=== PATIENT | female | born 1985 | race Two or more races ===

== ENCOUNTER 2024-05-12 15:21 | Inpatient (IN) | payer OTHER ==
[~2024-05-12] VITALS: Ht 167.6 cm; Wt 85.0 kg
[~2024-05-12 15:21] MED LIST: GLIP-110; INSLANTI; INSLISPI; PIOG15TA38
[2024-05-12 15:50] VITALS: PULSE 67; RESP 16; O2SAT 95
[2024-05-12 16:52] LABS: Basophils # (auto) 0.1 10 ^3/uL (0-0.2); Basophils % (auto) 0.5 % (0.0-2.0); Eosinophils # (auto) 0.2 10 ^3/uL (0-0.8); Eosinophils % (auto) 2.2 % (0.0-7.0); Hematocrit 34.6 % (36.0-46.0); Hemoglobin 11.3 g/dL (12.2-16.2); Lymphocytes # (auto) 1.3 10 ^3/uL (0.4-5.4); Lymphocytes % (auto) 13.2 % (10.0-50.0); Mean Corpuscular Hgb Conc. 32.5 g/dL (32.0-36.0); Mean Corpuscular Volume 95.3 fL (80.0-100.0); Monocytes # (auto) 0.8 10 ^3/uL (0-1.3); Monocytes % (auto) 8.1 % (0.0-12.0); Neutrophils # (auto) 7.5 10 ^3/uL (1.6-8.6); Platelet Count (auto) 189 10^3/uL (140-450); Red Blood Cells 3.63 10^6/uL (4.0-5.20); Red Cell Distribution Width 15.3 % (11.8-14.3); White Blood Cell 9.9 10^3/uL (4.4-10.8)
[2024-05-12 16:57] LABS: Alanine Aminotransferase 29 U/L (7-40); Albumin 2.7 g/dL (3.2-4.8); Alkaline Phosphatase 99 U/L (46-116); Anion Gap 10 (5-15); Aspartate Aminotransferase 14 U/L (13-40); BUN/Creatinine Ratio 4.6 (10.0-20.0); Bilirubin, Total < 0.2 mg/dL (0.2-1.0); Blood Urea Nitrogen 49 mg/dL (9-23); Calcium 8.2 mg/dL (8.7-10.4); Carbon Dioxide 28 mmol/L (20-31); Chloride 90 mmol/L (98-107); Potassium 4.4 mmol/L (3.5-5.1); Sodium 128 mmol/L (136-145)
--- NOTE | 2024-05-12 17:57 | ECG ---
[facility] Test Date: 2024-05-12 Test Time: 17:56:07 Pat Name: NEEL MOE Department: ER Room: [address] [place] [address] Gender: F Flight Operation Coordinator: RUSLAN : 1985 Requested By: POLO PÉREZ Order Number: [id number] Reading MD: Desmond Simental Measurements Intervals [place] Rate: 68 P: 53 CT: 149 QRS: 66 QRSD: 99 T: 65 QT: 418 QTc: 445 Interpretive Statements Sinus rhythm Probable left atrial enlargement Left ventricular hypertrophy Baseline wander in lead(s) II,III,aVF Electronically Signed On 05-14-2024 17:37:46 PST by Desmond Simental Please click the below link to view image of tracing.
[2024-05-12] MEDS ORDERED: DEXTROSE (50%) 50ML SYRG IV PRN ×2 (18:15→21:30)
--- NOTE | 2024-05-12 18:49 | ED.PDOC ---
History of Present Illness HPI Comments 39-year-old female with past medical history of diabetes mellitus, end-stage renal disease on peritoneal dialysis every night, hypertension, osteoporosis presented with complaints of generalized weakness, nausea, vomiting. She mentioned that on Friday she started feeling weak, after that her mother picked her from work. Patient started having nausea and vomiting since Friday and has not been able to tolerate any foods since then. She also mentioned associated headache. She mentioned that she has been sleepy since Friday. She also mentioned having chest pain that has been on and off going for a very long time, and as per patient she had a cardiac catheterization recently which was normal according to her. Patient mentioned that she has been doing peritoneal dialysis every night. Past medical history diabetes mellitus, end-stage renal disease on peritoneal dialysis every night, hypertension, osteoporosis Medication history Lopressor, metoprolol, lisinopril, clonidine, iron sulfate, glipizide, insulin Social history: Denied alcohol, smoking, marijuana or any other drug intake Allergic history Metformin Review of system Already described in the HPI Physical examination Examination General Appearance: Alert, Oriented X3, Cooperative, No acute distress, sleepy, currently on 2 L of oxygen HEENT: EOMI Respiratory: Clear to auscultation, Normal air movement Cardiovascular: Regular rate, Normal S1, Normal S2 Abdominal: Soft, peritoneal catheter present Extremities: No cyanosis, No edema, Normal pulses, No tenderness/swelling Skin: No rashes, No breakdown Neuro: Normal speech and tone Chief Complaint: General Weakness Time Seen by MD: 15:40 Primary Care Provider: DENISE Allergies: Coded Allergies: Metformin (Verified Allergy, Unknown, 10/07/16) Home Meds Reported Medications Insulin Glargine (Lantus) 100 Units/Ml Vial 06/19/11 Insulin Lispro (Human) (Humalog) 100 Mg/Ml Inj 06/19/11 Glipizide (Glipizide Er) 5 Mg Tab 06/19/11 Pioglitazone Hydrochloride (Actos) 15 Mg Tab 06/19/11 Mode of Arrival: EMS X-Ray, Labs, Meds, VS Vital Signs Date Time Temp Pulse Resp B/P (MAP) Pulse Ox O2 Delivery O2 Flow Rate FiO2 05/12/24 20:03 65 16 90 Nasal Cannula* 3 32 05/12/24 19:48 98.4 65 16 168/82 (110) 90 98.4 05/12/24 18:55 178/85 05/12/24 18:00 70 17 178/90 (119) 93 05/12/24 17:56 68 05/12/24 17:45 67 05/12/24 16:27 99.1 67 16 148/74 (98) 96 99.1 05/12/24 15:50 67 16 95 Nasal Cannula* 3 32 05/12/24 15:42 98.6 66 16 175/83 (113) 94 Lab Test 05/12/24 19:57 05/12/24 19:21 05/12/24 18:48 05/12/24 18:47 Range/Units Lactic Acid Level 1.6 0.4-2.0 mmol/L Troponin I High Sensitivity 158 *H </=34 ng/L POC Glucose > 600 *H > 600 *H 70-106 mg/dl Test 05/12/24 17:30 05/12/24 16:30 Range/Units Troponin I High Sensitivity 157 *H 140 *H </=34 ng/L Beta-Hydroxybutyric Acid 0.278 < 0.4 mmol/L Beta HCG, Quantitative 1.9 1.5-4.2 mIU/mL White Blood Count 9.9 4.4-10.8 10^3/uL Red Blood Count 3.63 L 4.0-5.20 10^6/uL Hemoglobin 11.3 L 12.2-16.2 g/dL Hematocrit 34.6 L 36.0-46.0 % Mean Corpuscular Volume 95.3 80.0-100.0 fL Mean Corpuscular Hemoglobin 31.0 28.0-32.0 pg Mean Corpuscular Hemoglobin Concent 32.5 32.0-36.0 g/dL Red Cell Distribution Width 15.3 H 11.8-14.3 % Platelet Count 189 140-450 10^3/uL Mean Platelet Volume 11.8 H 6.9-10.8 fL Neutrophils (%) (Auto) 76.0 37.0-80.0 % Lymphocytes (%) (Auto) 13.2 10.0-50.0 % Monocytes (%) (Auto) 8.1 0.0-12.0 % Eosinophils (%) (Auto) 2.2 0.0-7.0 % Basophils (%) (Auto) 0.5 0.0-2.0 % Neutrophils # (Auto) 7.5 1.6-8.6 10 ^3/uL Lymphocytes # (Auto) 1.3 0.4-5.4 10 ^3/uL Monocytes # (Auto) 0.8 0-1.3 10 ^3/uL Eosinophils # (Auto) 0.2 0-0.8 10 ^3/uL Basophils # (Auto) 0.1 0-0.2 10 ^3/uL Nucleated Red Blood Cells 1.0 % Sodium Level 128 L 136-145 mmol/L Potassium Level 4.4 3.5-5.1 mmol/L Chloride Level 90 L 98-107 mmol/L Carbon Dioxide Level 28 20-31 mmol/L Anion Gap 10 5-15 Blood Urea Nitrogen 49 H 9-23 mg/dL Creatinine 10.68 *H 0.550-1.02 mg/dL Glomerular Filtration Rate Calc 4 >90 mL/min BUN/Creatinine Ratio 4.6 L 10.0-20.0 Serum Glucose 730 *H 74-106 mg/dL Calcium Level 8.2 L 8.7-10.4 mg/dL Total Bilirubin < 0.2 L 0.2-1.0 mg/dL Aspartate Amino Transferase (AST) 14 13-40 U/L Alanine Aminotransferase (ALT) 29 7-40 U/L Alkaline Phosphatase 99 46-116 U/L B-Type Natriuretic Peptide 2812.37 0-100 pg/mL Total Protein 5.0 L 5.7-8.2 g/dL Albumin 2.7 L 3.2-4.8 g/dL Current Medications Medications (Trade) Dose Ordered Sig/Ann Route Start Time Stop Time Status Last Admin Hydralazine HCl (Apresoline Injection) 5 mg ONCE ONCE IV 05/12/24 18:15 05/12/24 18:25 DC 05/12/24 18:55 Insulin Glargine (Lantus) 20 units ONCE ONCE SC 05/12/24 18:15 05/12/24 18:25 DC 05/12/24 18:53 Sodium Chloride 250 ml @ 1,000 mls/hr Q15M ONCE IV 05/12/24 18:30 05/12/24 18:44 DC 05/12/24 18:55 Time of 1ST Reevaluation: 18:48 Reevaluation 1ST: Unchanged Patient Education/Counseling: Diagnosis, Treatment Family Education/Counseling: Diagnosis, Treatment Comments Patient presented with the HPI :generalized weakness, nausea, vomiting, chest pain. workup was initiated. EKG revealed normal sinus rhythm, no ST changes. Patient had elevated troponins 140, 157. Patient was given 250 mL IV bolus 2 times. test was negative. was given IV hydralazine no evidence of DKA. Patient was started on insulin Lantus and moderate sliding scale insulin Statement Request Clerk was consulted for peritoneal dialysis Patient has been observed in the ED adequate length of time to insure impro vement/stability. patient was admitted to the medicine team for further evaluation and treatment of their presentation. Departure 1 Departure Time of Disposition: 18:09 Impression: Primary Impression: Uncontrolled diabetes mellitus Additional Impressions: Elevated troponin Chest pain Acute hypoxic respiratory failure Disposition: ADMITTED INPATIENT Admit to: Tele Condition: Guarded Comments Talk to Dr. Cyr from [facility], authorized to admit the patient. Authorization number : [id number] POLO PÉREZ RESIDENT May 12, 2024 18:49
[2024-05-12] MEDS: INSULIN LANTUS (GLARGINE) 1 /0.01ml (100units/ml) SC ONE (18:53)
[2024-05-12] MEDS: SODIUM CHLORIDE 0.9% 250 ML IV ONE ×2 (18:55→19:00)
[2024-05-12] MEDS: hydrALAZINE HCL 20 MG/ML VL IV ONE ×2 (18:55→21:43)
--- NOTE | 2024-05-12 19:11 | DVH ---
EXAM: XY CHEST PORTABLE CLINICAL HISTORY: SOB TECHNIQUE: Single AP view of the chest WID: COMPARISON: None FINDINGS: Lines and tubes: None Chest: The heart size and pulmonary vasculature is within normal limits. No pleural effusion, pneumothorax, or consolidation. The osseous structures are grossly intact. IMPRESSION: No acute cardiopulmonary abnormality.
[2024-05-12] MEDS: ACCU-CHEK COMFORT CURVE STRIP VI SCH (20:00)
[2024-05-12] MEDS: InsuLIN REG 1unit/0.01ml Soln (100units/ml) SC SCH (20:00)
[2024-05-12 20:03] VITALS: PULSE 65; RESP 16; O2SAT 90
[2024-05-12] MEDS ORDERED: SODIUM BICARB 8.4% 50Meq/50ml SYR Vial IV ONE (20:45)
[2024-05-12] MEDS ORDERED: hydrALAZINE HCL 20 MG/ML VL IV PRN (21:30)
[2024-05-12] MEDS ORDERED: ACETAMINOPHEN 325 MG TAB PO PRN (21:30)
[2024-05-12] MEDS ORDERED: TEMAZEPAM 15 MG CAP PO PRN (21:30)
[2024-05-12] MEDS ORDERED: NITROGLYCERIN 0.4 MG SL TAB SL PRN (21:30)
[2024-05-12] MEDS: ATORVASTATIN 20 MG TAB PO SCH (22:00)
[2024-05-13] MEDS: InsuLIN REG 1unit/0.01ml Soln (100units/ml) SC SCH ×3 (00:15→22:27)
[2024-05-13] MEDS: ACCU-CHEK COMFORT CURVE STRIP VI SCH ×4 (00:15→17:27)
[2024-05-13 04:44] LABS: Basophils # (auto) 0 10 ^3/uL (0-0.2); Basophils % (auto) 0.5 % (0.0-2.0); Eosinophils # (auto) 0.5 10 ^3/uL (0-0.8); Eosinophils % (auto) 4.4 % (0.0-7.0); Hemoglobin 11.4 g/dL (12.2-16.2); Lymphocytes # (auto) 1.6 10 ^3/uL (0.4-5.4); Lymphocytes % (auto) 15.4 % (10.0-50.0); Mean Corpuscular Hemoglobin 30.8 pg (28.0-32.0); Mean Corpuscular Hgb Conc. 32.7 g/dL (32.0-36.0); Mean Corpuscular Volume 94.1 fL (80.0-100.0); Monocytes # (auto) 0.8 10 ^3/uL (0-1.3); Monocytes % (auto) 7.1 % (0.0-12.0); Neutrophils # (auto) 7.8 10 ^3/uL (1.6-8.6); Neutrophils % (auto) 72.6 % (37.0-80.0); Nucleated Red Blood Cells % 0.8 %; Platelet Count (auto) 181 10^3/uL (140-450); Red Blood Cells 3.72 10^6/uL (4.0-5.20); Red Cell Distribution Width 14.8 % (11.8-14.3); White Blood Cell 10.7 10^3/uL (4.4-10.8)
[2024-05-13 05:04] LABS: Alanine Aminotransferase 32 U/L (7-40); Alkaline Phosphatase 97 U/L (46-116); Anion Gap 12 (5-15); Aspartate Aminotransferase 16 U/L (13-40); BUN/Creatinine Ratio 3.5 (10.0-20.0); Bilirubin, Total < 0.2 mg/dL (0.2-1.0); Calcium 8.5 mg/dL (8.7-10.4); Carbon Dioxide 27 mmol/L (20-31); Chloride 93 mmol/L (98-107); Potassium 3.1 mmol/L (3.5-5.1); Sodium 132 mmol/L (136-145); Total Protein 5.6 g/dL (5.7-8.2)
[2024-05-13 05:19] LABS: Blood Urea Nitrogen 36 mg/dL (9-23)
[2024-05-13 05:20] LABS: Glucose 450 mg/dL (74-106)
--- NOTE | 2024-05-13 05:37 | DVHHP2 ---
History of Present Illness Reason for Visit: Generalized weakness History of Present Illness 39-year-old female presents for evaluation of generalized weakness. The patient endorses a three day history of worsening generalized weakness with fatigue. Patient reports practically becoming bed ridden for the past one day due to the increased fatigue. Her blood sugars have also remain elevated greater than 400. She is dialysis dependent and has peritoneal dialysis daily at home. Also reports substernal chest pressure. Denies shortness or breath. No other acute complaints reported. Past Medical History Diabetes mellitus, hypertension, end-stage renal disease Past Surgical History Peritoneal access Family History Noncontributory Smoke: No ALCOHOL: none Drugs: None Lives: with Family Review of Systems Review of Systems Review of systems are currently negative otherwise addressed in HPI. Allergies: Coded Allergies: Metformin (Verified Allergy, Unknown, 10/07/16) Medications Current Medications Medications Dose Ordered Sig/Ann Route Start Time Stop Time Status Last Admin Dose Admin Diagnostic Test (Pha) 1 strip IQ4HR 05/12/24 20:00 05/12/24 20:00 1 STRIP Insulin Human Regular IQ4HR SC 05/12/24 20:00 05/12/24 20:00 15 UNITS Dextrose 50 ml UD PRN IV 05/12/24 18:15 Pantoprazole Sodium 40 mg DAILY@0600 PO 05/13/24 06:00 Atorvastatin Calcium 20 mg HS PO 05/12/24 22:00 05/12/24 22:00 20 MG Aspirin 162 mg DAILY PO 05/13/24 10:00 Amlodipine Besylate 10 mg DAILY PO 05/13/24 10:00 Calcium Acetate 667 mg TIDWMEALS PO 05/13/24 08:00 Hydralazine HCl 10 mg Q6HP PRN IV 05/12/24 21:30 Diagnostic Test (Pha) 1 strip IQ4HR 05/13/24 00:00 05/13/24 00:15 1 STRIP Insulin Human Regular IQ4HR SC 05/13/24 00:00 05/13/24 00:15 20 UNITS Dextrose 50 ml UD PRN IV 05/12/24 21:30 Temazepam 15 mg QHSP PRN PO 05/12/24 21:30 Ondansetron HCl 4 mg Q4HP PRN IV 05/12/24 21:30 Acetaminophen 650 mg Q6HP PRN PO 05/12/24 21:30 Nitroglycerin 0.4 mg Q5MINP PRN SL 05/12/24 21:30 Morphine Sulfate 2 mg Q30M PRN IV 05/12/24 21:30 Exam Vital Signs Vital Signs Date Time Temp Pulse Resp B/P (MAP) Pulse Ox O2 Delivery O2 Flow Rate FiO2 05/13/24 04:00 66 14 155/78 (103) 94 05/13/24 00:00 98.4 98.4 05/12/24 20:03 Nasal Cannula* 3 32 Exam Gen: 39-year-old female in mild distress Skin: Warm, dry, normal color and texture, no rash. HEENT: Normocephalic atraumatic, mucous membranes moist and pink. Neck: Cervical and supraclavicular nodes normal without enlargement, trachea is midline, thyroid gland is normal without masses. Pulmonary: Clear to auscultation and percussion bilaterally. Cardiac: Regular rate and rhythm. No murmur Abdomen: Soft, nontender, nondistended, bowel sounds present all 4 quadrants, no guarding, no rigidity, no organomegaly. Extremities: No cyanosis, clubbing, no edema Neuro: Cranial nerves II through XII grossly intact, normal affect and speech, no focal motor deficits. Labs/Xrays ORDERING PHYSICIAN: POLO PÉREZ RESIDENT PROCEDURE(s): CXRP - CHEST PORTABLE REASON: SOB ORDER NUMBER(s): [id number], ACCESSION NUMBER(s): [id number] EXAM: XY CHEST PORTABLE CLINICAL HISTORY: SOB TECHNIQUE: Single AP view of the chest WID: COMPARISON: None FINDINGS: Lines and tubes: None Chest: The heart size and pulmonary vasculature is within normal limits. No pleural effusion, pneumothorax, or consolidation. The osseous structures are grossly intact. IMPRESSION: No acute cardiopulmonary abnormality. ATED BY: YARELI GOETZ MD DICTATED DATE/TIME: 05/12/241907 Labs Test 05/13/24 04:20 05/13/24 01:39 05/12/24 19:57 05/12/24 19:21 Range/Units White Blood Count 10.7 4.4-10.8 10^3/uL Red Blood Count 3.72 L 4.0-5.20 10^6/uL Hemoglobin 11.4 L 12.2-16.2 g/dL Hematocrit 35.0 L 36.0-46.0 % Mean Corpuscular Volume 94.1 80.0-100.0 fL Mean Corpuscular Hemoglobin 30.8 28.0-32.0 pg Mean Corpuscular Hemoglobin Concent 32.7 32.0-36.0 g/dL Red Cell Distribution Width 14.8 H 11.8-14.3 % Platelet Count 181 140-450 10^3/uL Mean Platelet Volume 10.8 6.9-10.8 fL Neutrophils (%) (Auto) 72.6 37.0-80.0 % Lymphocytes (%) (Auto) 15.4 10.0-50.0 % Monocytes (%) (Auto) 7.1 0.0-12.0 % Eosinophils (%) (Auto) 4.4 0.0-7.0 % Basophils (%) (Auto) 0.5 0.0-2.0 % Neutrophils # (Auto) 7.8 1.6-8.6 10 ^3/uL Lymphocytes # (Auto) 1.6 0.4-5.4 10 ^3/uL Monocytes # (Auto) 0.8 0-1.3 10 ^3/uL Eosinophils # (Auto) 0.5 0-0.8 10 ^3/uL Basophils # (Auto) 0 0-0.2 10 ^3/uL Nucleated Red Blood Cells 0.8 % Sodium Level 132 L 136-145 mmol/L Potassium Level 3.1 L 3.5-5.1 mmol/L Chloride Level 93 L 98-107 mmol/L Carbon Dioxide Level 27 20-31 mmol/L Anion Gap 12 5-15 Blood Urea Nitrogen 36 #H 9-23 mg/dL Creatinine 10.24 *H 0.550-1.02 mg/dL Glomerular Filtration Rate Calc 5 >90 mL/min BUN/Creatinine Ratio 3.5 L 10.0-20.0 Serum Glucose 450 *H 74-106 mg/dL Calcium Level 8.5 L 8.7-10.4 mg/dL Total Bilirubin < 0.2 L 0.2-1.0 mg/dL Aspartate Amino Transferase (AST) 16 13-40 U/L Alanine Aminotransferase (ALT) 32 7-40 U/L Alkaline Phosphatase 97 46-116 U/L Total Protein 5.6 L 5.7-8.2 g/dL Albumin 3.0 L 3.2-4.8 g/dL POC Glucose 533 *H 70-106 mg/dl Lactic Acid Level 1.6 0.4-2.0 mmol/L Troponin I High Sensitivity 158 *H </=34 ng/L Test 05/12/24 17:30 05/12/24 16:30 Range/Units Beta-Hydroxybutyric Acid 0.278 < 0.4 mmol/L Beta HCG, Quantitative 1.9 1.5-4.2 mIU/mL B-Type Natriuretic Peptide 2812.37 0-100 pg/mL Assessment/Plan Assessment/Plan Assessment Uncontrolled diabetes mellitus Elevated troponin End-stage renal disease, dialysis dependent Accelerated hypertension Anemia of chronic disease Plan Admit the patient to [facility] to the hospitalist Nephrology consult Cardiology consult Echocardiogram pending Continue insulin drip Resume home medications Continue treatment per orders. Plan discussed with: Patient My Orders Orders - DIANE WILKINS Procedure Category Date Status Time * Cardiology Consult CONS 05/12/24 Transmitted 21:21 Pantoprazole Tablet PHA 05/13/24 In Process (Protonix Tablet) 06:00 Atorvastatin (Lipitor) PHA 05/12/24 In Process 22:00 Aspirin Tablet PHA 05/13/24 In Process 10:00 Amlodipine Tablet PHA 05/13/24 In Process (Norvasc Tablet) 10:00 Calcium Acetate PHA 05/13/24 In Process Capsule (Phoslo 08:00 Hydralazine Injection PHA 05/12/24 In Process (Apresoline Inject 21:30 Glucose Blood PHA 05/13/24 In Process (Accu-Chek Comfort 00:00 Insulin R (Human) PHA 05/13/24 In Process (Insulin R) 00:00 Dextrose 50% Syringe PHA 05/12/24 In Process 21:30 Admit ADMIT 05/12/24 Transmitted 21:21 Renal DIET 05/13/24 Transmitted Standard(2gna,3gk,Lopho) Breakfast Temazepam (Restoril) PHA 05/12/24 In Process 21:30 Ondansetron Hcl PHA 05/12/24 In Process (Zofran) 21:30 Echo 2d Mode Cardiac US 05/12/24 Logged DOP 21:21 Condition: Fair DEANNE 11/20/24 In Process 21:21 Acetaminophen Tablet PHA 05/12/24 In Process (Tylenol Tablet) 21:30 Bedrest With Bathroom [facility] 05/12/24 In Process Privileg 21:21 Nitroglycerin [facility] 05/12/24 In Process Sublingual (Ntrostat 21:30 Morphine Sulfate [facility] 05/12/24 In Process Injection 21:30 Stat Ekg For Chest [facility] 05/12/24 In Process Pain 21:21 Notify Of Changes [facility] 05/12/24 In Process From Base 21:21 Maintenance [employer] For [facility] 05/12/24 In Process 24 Hours 21:21 Emergency Dysrhythmia [facility] 05/12/24 In Process Protocol 21:21 Rhythm Strips Once [facility] 05/12/24 In Process Every Shift 21:21 Oxygen By Nasal RT 05/12/24 Transmitted Cannula 21:21 Date of Service: May 12, 2024 Billing Provider: DIANE WILKINS Common Visit Codes: [id number] CARE 30-74 MIN DIANE WILKINS May 13, 2024 05:37
[2024-05-13] MEDS ORDERED: DEXTROSE (50%) 50ML SYRG IV PRN ×2 (05:45→12:15)
[2024-05-13] MEDS: INSULIN LANTUS (GLARGINE) 1 /0.01ml (100units/ml) SC ONE (05:45)
[2024-05-13] MEDS ORDERED: INSULIN DRIP 100 UNIT/100ML 100 ML IV SCH ×2 (05:45→06:30)
[2024-05-13] MEDS: PANTOPRAZOLE 40 MG TAB PO SCH (06:14)
[2024-05-13] MEDS: MORPHINE SULFATE INJ 2 MG/ml SYRG IV PRN (06:29)
[2024-05-13] MEDS: INSULIN DRIP 100 UNIT/100ML 100 ML IV SCH (07:07)
[2024-05-13 07:30] VITALS: PULSE 65; RESP 16
[2024-05-13] MEDS: CALCIUM ACETATE 667 MG CAP PO SCH (08:00)
[2024-05-13] MEDS: POTASSIUM CHL 20 Meq TABLET PO ONE ×2 (08:47→08:51)
[2024-05-13 08:56] LABS: Magnesium 2.6 mg/dL (1.6-2.6)
--- NOTE | 2024-05-13 09:36 | DVHINCON2 ---
Date Seen: May 13, 2024 Referring Physician RANDY Webb Reason for Consultation Elevated troponin History of Present Illness This is a 39-year-old female patient who presents to the emergency room with chief complaint of generalized weakness, chest pain, nausea, vomiting, loss of appetite, and shortness of breath. The patient reports that she slipped in the shower and fell landing on her chest approximately 4 days ago. Since then she has been experiencing reproducible chest pain. She describes the pain as provoked by touch, located in the intermammary region, and nonradiating. She reports that she has also been experiencing generalized weakness, nausea, vomiting, and decreased appetite for approximately five days now. Initial twelve lead electrocardiogram reveals normal sinus rhythm without any significant ST segment changes. Initial troponin level of 140ng/L with flat trend thereafter. Significant past medical history includes hypertension, hyperlipidemia, end-stage renal disease on peritoneal dialysis, type II diabetes mellitus, osteoporosis, and obesity. Of note, the patient came in a serum glucose level of 730mg/dL. She also came in with a blood pressure reaching as high as 178/90. She reports compliance with all of her medications, but reports she has been experiencing vomiting for the last few days. The patient also reports seeing a clerk guide earlier this year in which she reports she underwent a stress test that was negative. Past Medical History Past medical history reviewed. No other significant than mentioned above. Past Surgical History Denies all previous surgeries Family History Family history reviewed. Social History Denies the use of tobacco, alcohol or illicit drugs. Allergies: Coded Allergies: Metformin (Verified Allergy, Unknown, 10/07/16) Home Meds Reported Medications Insulin Glargine (Lantus) 100 Units/Ml Vial 06/19/11 Insulin Lispro (Human) (Humalog) 100 Mg/Ml Inj 06/19/11 Glipizide (Glipizide Er) 5 Mg Tab 06/19/11 Pioglitazone Hydrochloride (Actos) 15 Mg Tab 06/19/11 Home Meds Home medications reviewed. Current Medications Current Medications Medications (Trade) Dose Ordered Sig/Ann Route PRN Reason Start Time Stop Time Status Last Admin Diagnostic Test (Pha) (Accu-Chek Comfort Curve T) 1 strip IQ4HR 05/12/24 20:00 05/13/24 05:56 DC 05/12/24 20:00 Insulin Human Regular (InsuLIN R) IQ4HR SC 05/12/24 20:00 05/13/24 05:56 DC 05/12/24 20:00 Dextrose 50 ml UD PRN IV Blood Sugar LESS THAN 60 05/12/24 18:15 05/13/24 05:56 DC Pantoprazole Sodium (Protonix Tablet) 40 mg DAILY@0600 PO 05/13/24 06:00 05/13/24 06:14 Atorvastatin Calcium (Lipitor) 20 mg HS PO 05/12/24 22:00 05/12/24 22:00 Aspirin 162 mg DAILY PO 05/13/24 10:00 Amlodipine Besylate (Norvasc Tablet) 10 mg DAILY PO 05/13/24 10:00 Calcium Acetate (Phoslo Capsule) 667 mg TIDWMEALS PO 05/13/24 08:00 Hydralazine HCl (Apresoline Injection) 10 mg Q6HP PRN IV SBP>150 05/12/24 21:30 Diagnostic Test (Pha) (Accu-Chek Comfort Curve T) 1 strip IQ4HR 05/13/24 00:00 05/13/24 05:56 DC 05/13/24 00:15 Insulin Human Regular (InsuLIN R) IQ4HR SC 05/13/24 00:00 05/13/24 05:34 DC 05/13/24 00:15 Dextrose 50 ml UD PRN IV Blood Sugar LESS THAN 60 05/12/24 21:30 05/13/24 05:56 DC Temazepam (Restoril) 15 mg QHSP PRN PO FOR INSOMNIA 05/12/24 21:30 Ondansetron HCl (Zofran) 4 mg Q4HP PRN IV NAUSEA / VOMITING 05/12/24 21:30 Acetaminophen (Tylenol Tablet) 650 mg Q6HP PRN PO PAIN SCALE 1-3 OR TEMP>100.4 05/12/24 21:30 Nitroglycerin (Ntrostat Sublingual) 0.4 mg Q5MINP PRN SL FOR CHEST PAIN 05/12/24 21:30 Morphine Sulfate 2 mg Q30M PRN IV FOR CHEST PAIN 05/12/24 21:30 05/13/24 06:29 Insulin Human (Reg)/Sodium Chloride 100 ml @ 0.5 mls/hr Q24H IV 05/13/24 05:45 11/21/24 06:25 DC Diagnostic Test (Pha) (Accu-Chek Comfort Curve T) 1 strip Q90MIN 05/13/24 06:00 05/13/24 07:57 Dextrose 50 ml PRN PRN IV BG LESS Than 70 AND CALL 05/13/24 05:45 Insulin Glargine (Lantus) 15 units DAILY SC 05/14/24 10:00 Insulin Human (Reg)/Sodium Chloride 100 ml @ 0.5 mls/hr Q24H IV 05/13/24 06:30 05/13/24 06:36 DC Insulin Human (Reg)/Sodium Chloride 100 ml @ 0.5 mls/hr Q24H IV 05/13/24 06:45 05/13/24 08:48 Review of Systems Constitutional: Generalized weakness Ears, Nose, & Throat: No symptom reported Eyes: No symptom reported Neurological: No symptoms reported Pulmonary/Respiratory: No symptoms reported Cardiovascular: Chest pain Gastrointestinal: Nausea, vomiting, loss of appetite Genitourinary: No symptom reported Musculoskeletal: No symptom reported Skin: No symptom reported Psychiatric: No symptom reported Endocrine: No symptom reported Hematologic/Lymphatic: No symptom reported Vital Signs Vital Signs Date Time Temp Pulse Resp B/P (MAP) Pulse Ox O2 Delivery O2 Flow Rate FiO2 05/13/24 07:09 65 16 136/69 05/13/24 06:21 94 05/13/24 00:00 98.4 98.4 05/12/24 20:03 Nasal Cannula* 3 32 Physical Exam General Appearance: Cooperative. Obese Pulmonary/Respiratory: Clear, bilateral breaths sounds. Cardiovascular/Chest: Regular rate and rhythm. Peripheral Pulses: 2+ Radial (R). 2+ Radial (L). 2+ Pedal (R). 2+ Pedal (L) Abdominal Exam: Normal bowel sounds. Ankle Exam: Negative ankle edema Lower extremities: Negative lower extremity edema Neuro/Mental Status: A/OX4, coherent. Thoughts/Psych: Normal thought pattern. Appropriate mood and affect. Good judgment and insight. Appearance: No acute distress. Skin Exam: Normal inspection. Normal color. Warm and dry. Labs/Diagnostic Data Labs Test 05/13/24 07:52 05/13/24 04:20 05/12/24 19:57 05/12/24 19:21 Range/Units POC Glucose 292 H 70-106 mg/dl White Blood Count 10.7 4.4-10.8 10^3/uL Red Blood Count 3.72 L 4.0-5.20 10^6/uL Hemoglobin 11.4 L 12.2-16.2 g/dL Hematocrit 35.0 L 36.0-46.0 % Mean Corpuscular Volume 94.1 80.0-100.0 fL Mean Corpuscular Hemoglobin 30.8 28.0-32.0 pg Mean Corpuscular Hemoglobin Concent 32.7 32.0-36.0 g/dL Red Cell Distribution Width 14.8 H 11.8-14.3 % Platelet Count 181 140-450 10^3/uL Mean Platelet Volume 10.8 6.9-10.8 fL Neutrophils (%) (Auto) 72.6 37.0-80.0 % Lymphocytes (%) (Auto) 15.4 10.0-50.0 % Monocytes (%) (Auto) 7.1 0.0-12.0 % Eosinophils (%) (Auto) 4.4 0.0-7.0 % Basophils (%) (Auto) 0.5 0.0-2.0 % Neutrophils # (Auto) 7.8 1.6-8.6 10 ^3/uL Lymphocytes # (Auto) 1.6 0.4-5.4 10 ^3/uL Monocytes # (Auto) 0.8 0-1.3 10 ^3/uL Eosinophils # (Auto) 0.5 0-0.8 10 ^3/uL Basophils # (Auto) 0 0-0.2 10 ^3/uL Nucleated Red Blood Cells 0.8 % Sodium Level 132 L 136-145 mmol/L Potassium Level 3.1 L 3.5-5.1 mmol/L Chloride Level 93 L 98-107 mmol/L Carbon Dioxide Level 27 20-31 mmol/L Anion Gap 12 5-15 Blood Urea Nitrogen 36 #H 9-23 mg/dL Creatinine 10.24 *H 0.550-1.02 mg/dL Glomerular Filtration Rate Calc 5 >90 mL/min BUN/Creatinine Ratio 3.5 L 10.0-20.0 Serum Glucose 450 *H 74-106 mg/dL Calcium Level 8.5 L 8.7-10.4 mg/dL Magnesium Level 2.6 1.6-2.6 mg/dL Total Bilirubin < 0.2 L 0.2-1.0 mg/dL Aspartate Amino Transferase (AST) 16 13-40 U/L Alanine Aminotransferase (ALT) 32 7-40 U/L Alkaline Phosphatase 97 46-116 U/L Total Protein 5.6 L 5.7-8.2 g/dL Albumin 3.0 L 3.2-4.8 g/dL Triglycerides Level 151 H < 150 mg/dL Cholesterol Level 124 < 200 mg/dL LDL Cholesterol 62 < 100 mg/dL HDL Cholesterol 30 L 40-59 mg/dL Thyroid Stimulating Hormone (TSH) 1.82 0.55-4.78 uIU/mL Lactic Acid Level 1.6 0.4-2.0 mmol/L Troponin I High Sensitivity 158 *H </=34 ng/L Test 05/12/24 17:30 05/12/24 16:30 Range/Units Beta-Hydroxybutyric Acid 0.278 < 0.4 mmol/L Beta HCG, Quantitative 1.9 1.5-4.2 mIU/mL B-Type Natriuretic Peptide 2812.37 0-100 pg/mL Assessment NSTEMI, rule out coronary artery disease Hypertensive urgency, resolved Uncontrolled diabetes mellitus, (Hgb A1c 12.6%) End-stage renal disease on peritoneal dialysis Obesity Plan/Recommendation We will continue with the following plan/recommendations (Dr. Braun): Seen and examined at bedside with . Transthoracic echocardiogram reveals EF 50%. Given the patient's elevated troponin level, multiple comorbidities, and elevated HEART score of 4 points, we will recommend for the patient to undergo a left heart catheterization. The procedure was discussed with the patient full detail including risks and benefits. Risks include but not limited to bleeding, contrast induced nephropathy, stroke, and even . The patient understands and is agreeable to undergo the procedure. We will schedule the patient at first availability on 05/14/24. In the meantime, continue on monitoring tech and notify of any ECG changes. Aggressive BP control, and lipid-lowering agent. Thank you for allowing us to care for this patient. Please call with any questions or concerns. Critical care time spent: 40 minutes This medical document was created using an electronic medical record system with voice recognition software and computerized dictation system. Although this document has been carefully reviewed, there might still be some phonetic and typographical errors. Occasional wrong-word or ``sound-alike substitutions may have occurred due to the inherent limitations of voice recognition software. These areas are purely typographical due to imperfections of the software progr ams and do not reflect any compromise in the patient's medical care. Please read the chart carefully and recognize, using context, where these substitutions have occurred. Plan discussed with: Patient Date of Service: May 13, 2024 Billing Provider: PRIYANKA BRAUN MD Cardiology Common Codes: 69384-[id number] INP/OBS CARE (High) Cardiology Consultation Codes: 21141-[id number] CONSULT <45MIN ARNOLD PAPPAS PETROPHYSICIST May 13, 2024 09:36
[2024-05-13] MEDS: ASPirin 81 mg TAB PO SCH (10:28)
[2024-05-13] MEDS: amLODIPine BESYLATE 5 MG TAB PO SCH (10:29)
--- NOTE | 2024-05-13 14:44 | DVHSR ---
APPROVED REPORT EXAM: Two-dimensional and M-mode echocardiogram with Doppler and color Doppler. Blood Pressure: 136/69 mmHg INDICATION EF RISK FACTORS Height: 5' 6", Weight: 187 DIMENSIONS LVDd5.0 (3.8-5.7cm)LA (2D)4.3 (1.9-4.0cm)Aortic Root2.7 (2.0-3.7cm) LVDs4.0 (2.5-4.0cm)LA (MM) (1.9-4.0cm)Aortic Cusp Exc1.6 (1.5-2.0cm) EF (%) 50.0 (55-70%)Rt. Atrium3.9 (1.9-4.0cm)Asc. Aorta cm IVSd1.4 (0.7-1.1cm)RV (D) (1.8-2.4cm) PWd1.5 (0.7-1.1cm) Mitral Valve MitralMitral Stenosis E wave1.30m/sMV Mean GR.mmHg A wave0.70m/sMV Peak GR.mmHg E/A ratio1.92D MVAcm2 Aortic Valve Aortic ValveAortic Stenosis V10.90m/Boogie Mean GR.6mmHg V21.60m/Boogie Peak GR.11mmHg LVOT Diameter2.0 (1.8-2.4cm)Doppler AVA1.77cm2 Pulmonic Valve V20.60m/s Tricuspid Valve TR Velocity2.80m/s [id number] Conclusion Normal left ventricular size and dimension. Normal left ventricular systolic function estimated ejec tion fraction 50%. Normal diastolic function. Normal right ventricular size and dimension. Normal right ventricular systolic function. Normal biatrial size and dimension. Normal aortic valve structure and function. Normal mitral valve structure and function. Normal tricuspid valve structure and function. Pulmonary valve is grossly normal. There is a small pericardial effusion.
--- NOTE | 2024-05-13 17:01 | DVHPN2 ---
Subjective Patient continues to report having chest pain and shortness of breaths. Reviewed: Care Plan, H&P, Labs, Medications Changes from previous H/P or p: No Changes General: Per HPI Objective Vitals Vital Signs Date Time Temp Pulse Resp B/P (MAP) Pulse Ox O2 Delivery O2 Flow Rate FiO2 05/13/24 11:00 98.3 66 16 149/82 (104) 94 98.3 05/13/24 07:30 Nasal Cannula* 3 32 General Appearance: Alert, Oriented X3, Cooperative, mild distress HEENT: Atraumatic, PERRLA Lungs: Clear to auscultation, Normal air movement, Other (Cannula at 2 L per minute) Cardiovascular: Normal S1, Normal S2 Musculoskeletal: Normal sensory function, Normal motor function Neuro: Normal gait, Normal speech Psych/Mental Status: Mental status NL, Mood NL Medications Current Medications Medications Dose Ordered Sig/Ann Route Start Time Stop Time Status Last Admin Dose Admin Pantoprazole Sodium 40 mg DAILY@0600 PO 05/13/24 06:00 05/13/24 06:14 40 MG Amlodipine Besylate 10 mg DAILY PO 05/13/24 10:00 05/13/24 10:29 10 MG Calcium Acetate 667 mg TIDWMEALS PO 05/13/24 08:00 05/13/24 12:59 667 MG Hydralazine HCl 10 mg Q6HP PRN IV 05/12/24 21:30 Temazepam 15 mg QHSP PRN PO 05/12/24 21:30 Ondansetron HCl 4 mg Q4HP PRN IV 05/12/24 21:30 Acetaminophen 650 mg Q6HP PRN PO 05/12/24 21:30 Nitroglycerin 0.4 mg Q5MINP PRN SL 05/12/24 21:30 Morphine Sulfate 2 mg Q30M PRN IV 05/12/24 21:30 05/13/24 06:29 2 MG Insulin Glargine 15 units DAILY SC 05/14/24 10:00 Diagnostic Test (Pha) 1 strip ACHS 05/13/24 17:00 Insulin Human Regular HS SC 05/13/24 22:00 Insulin Human Regular AC SC 05/13/24 17:00 Dextrose 50 ml UD PRN IV 05/13/24 12:15 Atorvastatin Calcium 40 mg HS PO 05/13/24 22:00 Laboratory Results Laboratory Tests 05/13/24 04:20 Chemistry Test 05/13/24 04:20 Albumin 3.0 g/dL (3.2-4.8) L Calcium Level 8.5 mg/dL (8.7-10.4) L Magnesium Level 2.6 mg/dL (1.6-2.6) Phosphorus Level 4.1 mg/dL (2.4-5.1) Total Protein 5.6 g/dL (5.7-8.2) L Lipid panel Test 05/13/24 04:20 Cholesterol Level 124 mg/dL (< 200) HDL Cholesterol 30 mg/dL (40-59) L Triglycerides Level 151 mg/dL (< 150) H LFT Test 05/13/24 04:20 Alanine Aminotransferase (ALT) 32 U/L (7-40) Alkaline Phosphatase 97 U/L (46-116) Aspartate Amino Transferase (AST) 16 U/L (13-40) Total Bilirubin < 0.2 mg/dL (0.2-1.0) L HgA1c, TSH Test 05/13/24 04:20 Hemoglobin A1c 12.6 % A1C (<5.7) H Thyroid Stimulating Hormone (TSH) 1.82 uIU/mL (0.55-4.78) Labs and/or images reviewed: Labs reviewed by me, Image(s) reviewed by me Assessment/Plan Assessment/Plan Impression: -NSTEMI, probably type 2 -severe hyperglycemia -chest trauma -end-stage renal disease with peritoneal dialysis -diabetes mellitus, type on -obesity -chronic pain syndrome Plan: -cardiology consultation: Plans for left heart catheterization tomorrow -CT scan of the chest given persistent chest pain after mechanical fall -blood sugars now controlled, stop insulin drip, use insulin sliding scale -continue peritoneal dialysis per Nephrology -restart home pain management regimen -repeat labs in a.m. -patient is unstable to transfer to [facility] and given chest pain, NSTEMI questionably type 1, as well as insulin drip. Critical care time spent with patient discussing and formulating plan of care: 40 minutes. This does not include time spent performing procedures. This medical document was created using an electronic medical record system with [employer] dictation system. Although this document has been carefully reviewed, there may still be some phonetic and typographical errors. These areas are purely typographical due to imperfections of the software programs, and do not reflect any compromise in the patient's medical care. Plan discussed with: Patient, Other (RN) My Orders Orders - GARRETT GELLER NP Procedure Category Date Status Time Glucose Blood PHA 05/13/24 In Process (Accu-Chek Comfort 17:00 Insulin R (Human) PHA 05/13/24 In Process (Insulin R) 22:00 Insulin R (Human) PHA 05/13/24 In Process (Insulin R) 17:00 Dextrose 50% Syringe PHA 05/13/24 In Process 12:15 Transfer Orders XFER 05/13/24 Transmitted 12:05 Date of Service: May 13, 2024 Billing Provider: GARRETT GELLER NP Common Visit Codes: 82847-[id number] CARE 30-74 MIN GARRETT GELLER NP May 13, 2024 17:01
--- NOTE | 2024-05-13 17:30 | DVHCONRES ---
Date Seen: May 13, 2024 Resident Creating Document: TINY PATIÑO RESIDENT Referring Physician Jon PADILLA Reason for Consultation ESRD History of Present Illness Patient is 39 year old female with past medical history hypertension, hyperlipidemia, end-stage renal disease on peritoneal dialysis, type II diabetes mellitus, osteoporosis, and obesity who came to the hospital with a chief complaint of generalized weakness, loss of appetite and mild shortness of breath. As per patient her diabetes not under control, the reason for ended up ESRD requiring dialysis was uncontrolled hypertension and diabetes. Patient usually follow at [place] with corporate meeting planner over there. At the time of evaluation patient continued complaining of generalized weakness, shortness of breath, loss of appetite. No any other complaints at that point. Patient was found to have a high level of glucose around 700 mg/dL, by hospitalist team patient was given insulin. Nephrology consultation was done for management of end-stage renal disease. No other complaints at this point. Past Medical History hypertension, hyperlipidemia, end-stage renal disease on peritoneal dialysis, type II diabetes mellitus, osteoporosis, and obesity Past Surgical History Denies surgery. Social History Lives with family Denies use of alcohol, smoking or any other illicit drug use. Allergies: Coded Allergies: Metformin (Verified Allergy, Unknown, 10/07/16) Home Meds Reported Medications Insulin Glargine (Lantus) 100 Units/Ml Vial 06/19/11 Insulin Lispro (Human) (Humalog) 100 Mg/Ml Inj 06/19/11 Glipizide (Glipizide Er) 5 Mg Tab 06/19/11 Pioglitazone Hydrochloride (Actos) 15 Mg Tab 06/19/11 Current Medications Current Medications Medications (Trade) Dose Ordered Sig/Ann Route PRN Reason Start Time Stop Time Status Last Admin Diagnostic Test (Pha) (Accu-Chek Comfort Curve T) 1 strip IQ4HR 05/12/24 20:00 05/13/24 05:56 DC 05/12/24 20:00 Insulin Human Regular (InsuLIN R) IQ4HR SC 05/12/24 20:00 05/13/24 05:56 DC 05/12/24 20:00 Dextrose 50 ml UD PRN IV Blood Sugar LESS THAN 60 05/12/24 18:15 05/13/24 05:56 DC Pantoprazole Sodium (Protonix Tablet) 40 mg DAILY@0600 PO 05/13/24 06:00 05/13/24 06:14 Atorvastatin Calcium (Lipitor) 20 mg HS PO 05/12/24 22:00 05/13/24 15:09 DC 05/12/24 22:00 Aspirin 162 mg DAILY PO 05/13/24 10:00 05/13/24 15:09 DC 05/13/24 10:28 Amlodipine Besylate (Norvasc Tablet) 10 mg DAILY PO 05/13/24 10:00 05/13/24 10:29 Calcium Acetate (Phoslo Capsule) 667 mg TIDWMEALS PO 05/13/24 08:00 05/13/24 12:59 Hydralazine HCl (Apresoline Injection) 10 mg Q6HP PRN IV SBP>150 05/12/24 21:30 Diagnostic Test (Pha) (Accu-Chek Comfort Curve T) 1 strip IQ4HR 05/13/24 00:00 05/13/24 05:56 DC 05/13/24 00:15 Insulin Human Regular (InsuLIN R) IQ4HR SC 05/13/24 00:00 05/13/24 05:34 DC 05/13/24 00:15 Dextrose 50 ml UD PRN IV Blood Sugar LESS THAN 60 05/12/24 21:30 05/13/24 05:56 DC Temazepam (Restoril) 15 mg QHSP PRN PO FOR INSOMNIA 05/12/24 21:30 Ondansetron HCl (Zofran) 4 mg Q4HP PRN IV NAUSEA / VOMITING 05/12/24 21:30 Acetaminophen (Tylenol Tablet) 650 mg Q6HP PRN PO PAIN SCALE 1-3 OR TEMP>100.4 05/12/24 21:30 Nitroglycerin (Ntrostat Sublingual) 0.4 mg Q5MINP PRN SL FOR CHEST PAIN 05/12/24 21:30 Morphine Sulfate 2 mg Q30M PRN IV FOR CHEST PAIN 05/12/24 21:30 05/13/24 06:29 Insulin Human (Reg)/Sodium Chloride 100 ml @ 0.5 mls/hr Q24H IV 05/13/24 05:45 05/13/24 06:25 DC Diagnostic Test (Pha) (Accu-Chek Comfort Curve T) 1 strip Q90MIN 05/13/24 06:00 05/13/24 10:27 DC 05/13/24 09:52 Dextrose 50 ml PRN PRN IV BG LESS Than 70 AND CALL 05/13/24 05:45 05/13/24 12:14 DC Insulin Glargine (Lantus) 15 units DAILY SC 05/14/24 10:00 Insulin Human (Reg)/Sodium Chloride 100 ml @ 0.5 mls/hr Q24H IV 05/13/24 06:30 05/13/24 06:36 DC Insulin Human (Reg)/Sodium Chloride 100 ml @ 0.5 mls/hr Q24H IV 05/13/24 06:45 05/13/24 12:09 DC 05/13/24 08:48 Diagnostic Test (Pha) (Accu-Chek Comfort Curve T) 1 strip Q90MIN 05/13/24 11:45 05/13/24 12:09 DC 05/13/24 11:48 Diagnostic Test (Pha) (Accu-Chek Comfort Curve T) 1 strip ACHS 05/13/24 17:00 Insulin Human Regular (InsuLIN R) HS SC 05/13/24 22:00 Insulin Human Regular (InsuLIN R) AC SC 05/13/24 17:00 Dextrose 50 ml UD PRN IV Blood Sugar LESS THAN 60 05/13/24 12:15 Atorvastatin Calcium (Lipitor) 40 mg HS PO 05/13/24 22:00 Oxycodone/ Acetaminophen (Percocet 5/ 325MG Tablet) 1 tab Q6HP PRN PO MODERATE PAIN (4-6 PAIN SCALE) 05/13/24 17:00 Review of Systems Patient complaining of generalized weakness no any other complaints. Eyes: No Pain, No Vision change, No Conjunctivae inflammation, No Eyelid inflammation, No Other, No Redness ENT: No Ear pain, No Ear discharge, No Nose pain, No Nose discharge, No Nose congestion, No Mouth pain, No Mouth swelling, No Throat pain, No Throat swelling , No Other Cardiovascular: No Chest Pain, No Palpitations, No Orthopnea, No Paroxysmal Noc. Dyspnea, No Edema, No Lt Headedness, No Other Respiratory: No Cough, No Dry, No Shortness of breath, No SOB with excertion, No Wheezing, No Hemoptysis, No Pleuritic Pain, No Sputum, No Other Gastrointestinal: No Nausea, No Vomiting, No Abdominal Pain, No Diarrhea, No Constipation, No Melena, No Hematochezia, No Other Genitourinary: No Dysuria, No Frequency, No Incontinence, No Hematuria, No Retention, No Other Musculoskeletal: No other, No neck pain, No shoulder pain, No arm pain, No back pain, No hand pain, No leg pain, No foot pain Skin: No Rash, No Lesions, No Jaundice, No Bruising, No Other Vital Signs Vital Signs Date Time Temp Pulse Resp B/P (MAP) Pulse Ox O2 Delivery O2 Flow Rate FiO2 05/13/24 11:00 98.3 66 16 149/82 (104) 94 98.3 05/13/24 07:30 Nasal Cannula* 3 32 Physical Exam General Appearance: Cooperative. Well developed. Well nourished. NAD Head Exam: Normal inspection Neck Exam: Normal inspection. Non-tender. Normal alignment Pulmonary/Respiratory: Chest non-tender. Clear bilateral breath sounds Cardiovascular/Chest: Regular rate and rhythm. No murmurs. No JVD. Peripheral Pulses: 2+ Radial (R). 2+ Radial (L). 2+ Pedal (R). 2+ Pedal (L) Abdominal Exam: Normal bowel sounds. Soft. Nontender. No hepatospenomegaly. No masses, presence of peritoneal dialysis catheter. Ankle Exam: Negative ankle edema Lower extremities: Negative lower extremity edema Neuro/Mental Status: A&O x4. Coherent Thoughts/Psych: Normal thought pattern. Appropriate mood and affect. Good judgement and insight Appearance: In no acute distress Skin Exam: Normal inspection. Normal color. Warm. Dry Labs/Diagnostic Data Labs Test 05/13/24 11:46 05/13/24 04:20 05/12/24 19:57 05/12/24 19:21 Range/Units POC Glucose 148 H 70-106 mg/dl White Blood Count 10.7 4.4-10.8 10^3/uL Red Blood Count 3.72 L 4.0-5.20 10^6/uL Hemoglobin 11.4 L 12.2-16.2 g/dL Hematocrit 35.0 L 36.0-46.0 % Mean Corpuscular Volume 94.1 80.0-100.0 fL Mean Corpuscular Hemoglobin 30.8 28.0-32.0 pg Mean Corpuscular Hemoglobin Concent 32.7 32.0-36.0 g/dL Red Cell Distribution Width 14.8 H 11.8-14.3 % Platelet Count 181 140-450 10^3/uL Mean Platelet Volume 10.8 6.9-10.8 fL Neutrophils (%) (Auto) 72.6 37.0-80.0 % Lymphocytes (%) (Auto) 15.4 10.0-50.0 % Monocytes (%) (Auto) 7.1 0.0-12.0 % Eosinophils (%) (Auto) 4.4 0.0-7.0 % Basophils (%) (Auto) 0.5 0.0-2.0 % Neutrophils # (Auto) 7.8 1.6-8.6 10 ^3/uL Lymphocytes # (Auto) 1.6 0.4-5.4 10 ^3/uL Monocytes # (Auto) 0.8 0-1.3 10 ^3/uL Eosinophils # (Auto) 0.5 0-0.8 10 ^3/uL Basophils # (Auto) 0 0-0.2 10 ^3/uL Nucleated Red Blood Cells 0.8 % Sodium Level 132 L 136-145 mmol/L Potassium Level 3.1 L 3.5-5.1 mmol/L Chloride Level 93 L 98-107 mmol/L Carbon Dioxide Level 27 20-31 mmol/L Anion Gap 12 5-15 Blood Urea Nitrogen 36 #H 9-23 mg/dL Creatinine 10.24 *H 0.550-1.02 mg/dL Glomerular Filtration Rate Calc 5 >90 mL/min BUN/Creatinine Ratio 3.5 L 10.0-20.0 Serum Glucose 450 *H 74-106 mg/dL Hemoglobin A1c 12.6 H <5.7 % A1C Calcium Level 8.5 L 8.7-10.4 mg/dL Phosphorus Level 4.1 2.4-5.1 mg/dL Magnesium Level 2.6 1.6-2.6 mg/dL Total Bilirubin < 0.2 L 0.2-1.0 mg/dL Aspartate Amino Transferase (AST) 16 13-40 U/L Alanine Aminotransferase (ALT) 32 7-40 U/L Alkaline Phosphatase 97 46-116 U/L Total Protein 5.6 L 5.7-8.2 g/dL Albumin 3.0 L 3.2-4.8 g/dL Triglycerides Level 151 H < 150 mg/dL Cholesterol Level 124 < 200 mg/dL LDL Cholesterol 62 < 100 mg/dL HDL Cholesterol 30 L 40-59 mg/dL Thyroid Stimulating Hormone (TSH) 1.82 0.55-4.78 uIU/mL Lactic Acid Level 1.6 0.4-2.0 mmol/L Troponin I High Sensitivity 158 *H </=34 ng/L Test 05/12/24 17:30 05/12/24 16:30 Range/Units Beta-Hydroxybutyric Acid 0.278 < 0.4 mmol/L Beta HCG, Quantitative 1.9 1.5-4.2 mIU/mL B-Type Natriuretic Peptide 2812.37 0-100 pg/mL Assessment ESRD on peritoneal dialysis NSTEMI type 2 Hypertensive urgency Uncontrolled Diabetes mellitus type 2 with severe hyperglycemia Hypokalemia Obesity Plan/recommendation Dr. Pittman -Continue peritoneal dialysis daily. -Strict Blood pressure control: Target blood pressure 140/90 mm Hg. Can resume home medication as appropriate. -Strict blood glucose control: Per patient she is on insulin 70/30. Last HGB A1c 12.6 on 05/13/2024 -Renal diet -Maintain strict I&O -Rest of the management per hospitalist. -Transthoracic echocardiogram reveals EF 50% -Per cardiology plan for left heart catheterization. -explained all clinicals and current clinical status with patient and mother. Total time spent greater than 78 minutes, including most of the time spent [id number] interaction with family. Thank you for consultation Addendum Patient seen and examined, plan discussed with resident. Agree with above, we will follow closely continue cycler continue home prescription with home supplies ,, f/u simmons after dc Plan discussed with: Patient, Other (Mother) TINY PATIÑO RESIDENT May 13, 2024 17:30 RADHA PITTMAN MD May 13, 2024 19:38
[2024-05-13] MEDS: OXYCODONE W/ ACETAMINOPHEN 5/325MG TABLET PO PRN (17:32)
--- NOTE | 2024-05-13 18:39 | DVH ---
EXAM: CT CHEST WITHOUT CONTRAST History: Chest trauma, elevated troponin, questionable thoracic audrey Comparison Study: None available TECHNIQUE: Multidetector CT of the chest was performed. Imaging was performed without IV contrast. Ax ial, coronal, and sagittal multiplanar reformats were obtained from the axial data set by the technol ogrubens. Radiation Dose : CTDI vol 9.58 mGy, DLP 312.41 mGy*cm. Findings: Lungs: The lungs are clear. Pleura: Trace bilateral pleural effusions. Heart/Great vessels: Mild cardiomegaly and pericardial effusion. Mediastinum: Unremarkable Soft tissues/Bones: Mild multilevel degenerative changes of the thoracic spine with compression frac tures of T5, T8-9, and T11. Mild volume ascites. The remaining partially visualized upper abdomen is within normal limits. Impression: 1. Trace bilateral pleural effusions. 2. Cardiomegaly wit mild pericardial effusion. 3. No acute ossous abnormality.
[2024-05-13 18:53] LABS: Erythrocyte Sedimentation Rate 16 mm/hr (0-20)
[2024-05-13 19:49] VITALS: PULSE 106; RESP 14; O2SAT 92
[2024-05-13] MEDS: ONDANSETRON HCL 4 MG/2 ML VIAL IV PRN (21:38)
[2024-05-13] MEDS: ATORVASTATIN 20 MG TAB PO SCH (22:08)
[2024-05-14] VITALS (11 sets, daily range): BP systolic 135–157; BP diastolic 79–94; PULSE 61–80; RESP 12–14; TEMP 97.8; O2SAT 94–99
[2024-05-14 05:45] LABS: Basophils # (auto) 0 10 ^3/uL (0-0.2); Basophils % (auto) 0.5 % (0.0-2.0); Eosinophils # (auto) 0.4 10 ^3/uL (0-0.8); Eosinophils % (auto) 4.3 % (0.0-7.0); Hematocrit 36.7 % (36.0-46.0); Hemoglobin 12.5 g/dL (12.2-16.2); Lymphocytes # (auto) 1.6 10 ^3/uL (0.4-5.4); Lymphocytes % (auto) 17.6 % (10.0-50.0); Mean Corpuscular Hemoglobin 31.7 pg (28.0-32.0); Mean Corpuscular Hgb Conc. 34.1 g/dL (32.0-36.0); Monocytes # (auto) 0.7 10 ^3/uL (0-1.3); Monocytes % (auto) 7.2 % (0.0-12.0); Neutrophils # (auto) 6.5 10 ^3/uL (1.6-8.6); Neutrophils % (auto) 70.4 % (37.0-80.0); Nucleated Red Blood Cells % 0.2 %; Platelet Count (auto) 163 10^3/uL (140-450); Red Blood Cells 3.94 10^6/uL (4.0-5.20); Red Cell Distribution Width 14.8 % (11.8-14.3); White Blood Cell 9.2 10^3/uL (4.4-10.8)
[2024-05-14 05:57] LABS: Anion Gap 11 (5-15); Carbon Dioxide 26 mmol/L (20-31); Chloride 95 mmol/L (98-107); Potassium 3.5 mmol/L (3.5-5.1); Sodium 132 mmol/L (136-145)
[2024-05-14 05:59] LABS: Calcium 8.4 mg/dL (8.7-10.4)
[2024-05-14 06:02] LABS: Glucose 243 mg/dL (74-106)
[2024-05-14 06:04] LABS: BUN/Creatinine Ratio 3.5 (10.0-20.0); Blood Urea Nitrogen 35 mg/dL (9-23)
[2024-05-14 07:44] LABS: INR 0.95 (0.9-1.15); Partial Thromboplastin Time 23.1 SEC (24.5-34.5); Prothrombin Time 10.1 sec (9.3-11.8)
[2024-05-14] MEDS ORDERED: IODIXANOL 320MG/ML 100ML BTL IV ONE (08:16)
[2024-05-14 08:42] LABS: Glucose 730 mg/dL (74-106)
[2024-05-14] MEDS ORDERED: HEPARIN SODIUM (PORCINE) 5000 UNITS/ML 1ML VIAL ONE (08:55)
[2024-05-14] MEDS ORDERED: fentaNYL CITRATE 100 MCG/2 ML VL ONE (08:55)
[2024-05-14] MEDS ORDERED: VERAPAMIL 2.5MG/ML INJ 2ML VIAL IV ONE (08:55)
[2024-05-14] MEDS ORDERED: ANGIOMAX 250 MG VIAL IV ONE (08:56)
[2024-05-14] MEDS ORDERED: MIDAZOLAM HCL 2MG/2ML 2ml VIAL (1mg/ml) ONE (08:56)
[2024-05-14] MEDS ORDERED: LIDOCAINE 2%HCL (LOCAL ANESTH.) INJ 20ML MDV ONE (08:56)
[2024-05-14] MEDS ORDERED: SODIUM CHL 0.9% 0 ML ONE (08:56)
--- NOTE | 2024-05-14 09:40 | DVHOP2 ---
Operative Report -Cardiology Report Details Date: 05/14/24 Preop Diagnosis: Angina pectoralis. Postop Diagnosis: Coronary angiography revealed no significant coronary artery disease. Patient has normal left ventricular end-diastolic pressure. Surgeon: Deyanira Vanessa MD Anesthesiologist: Conscious sedation using25 mcg of fentanyl as well as a mg IV midazolam Anesthesia: Local Consent: The patient was informed of the risks and benefits of the procedure. These include but are not limited to complications of anesthesia, postoperative infection, incomplete relief of symptoms, recurrence of symptoms, damage to blood vessels, nerves and tendons, deep venous thrombosis, pulmonary embolism and possible need for repeat surgery in the future. Indications for Surgery: This is a 39-year-old female patient who presents to the emergency room with chief complaint of generalized weakness, chest pain, nausea, vomiting, loss of appetite, and shortness of breath. The patient reports that she slipped in the shower and fell landing on her chest approximately 4 days ago. Since then she has been experiencing reproducible chest pain. She describes the pain as provoked by touch, located in the intermammary region, and nonradiating. She reports that she has also been experiencing generalized weakness, nausea, vomiting, and decreased appetite for approximately five days now. Initial twelve lead electrocardiogram reveals normal sinus rhythm without any significant ST segment changes. Initial troponin level of 140ng/L with flat trend thereafter. Significant past medical history includes hypertension, hyperlipidemia, end-stage renal disease on peritoneal dialysis, type II diabetes mellitus, osteoporosis, and obesity. Of note, the patient came in a serum glucose level of 730mg/dL. She also came in with a blood pressure reaching as high as 178/90. She reports compliance with all of her medications, but reports she has been experiencing vomiting for the last few days. The patient also reports seeing a cupola mechanic earlier this year in which she reports she underwent a stress test that was negative. Name of Procedure Performed 1. Left heart catheterization with left ventricular end-diastolic pressure measurement. 2. Selective right and left coronary angiography utilizing right transradial approach. 3. Conscious sedation using25 mcg of fentanyl as well as a mg midazolam Procedure Details Procedure Details: Procedure note and vascular access: After informed consent was obtained, risks benefits, complications, and alternatives were discussed in details with the patient who agrees to have the procedure done. At the beginning of the procedure. The right wrist and the right coronary artery were prepped and draped in regular sterile fashion. Patient received conscious sedation with25 mcg of fentanyl as well as a mg of midazolam. Total of 2 cc of 1% xylocaine was applied locally to the right wrist area before a six Belgian sheath was applied into the right radial artery without difficulty using modified Seldinger technique. A cocktail of 2.5 mg of verapamil as well as 100 mcg of nitroglycerin were given intra-arterial to prevent vasospasm. Total of 3000 heparin was given after the diagnostic catheter and the J-tip wire crossed the aortic arch. Findings were as follows: 1. Left heart catheterization with left ventricular end-diastolic pressure measurement. With the help of a tiger five Belgian diagnostic catheter as well as a J-tip wire we were able to cross the aortic valve and measured left ventricular end- diastolic pressure which was normal at 6 mm of mercury. There was no gradient across the aortic valve on the pullback. 2.Selective right and left coronary angiography utilizing right transradial approach: 1. Right coronary artery comes off the right coronary cusp it is a large dominant system bifurcates distally into a large posterior descending artery as well as large posterolateral branch. The right coronary artery is free of any significant atherosclerotic plaquing. 2. The left main has normal origin from the left coronary cusp, it is widely patent without significant stenosis. It bifurcates distally into large left anterior descending artery as well as the medium-sized left circumflex vessel. 3. The left anterior descending artery it is a large vessel that gives rise to a large diagonal branch. It has mild irregularity of the proximal segment. There was ostial disease of the 1st diagonal branch at 30-40%. No other significant disease was noted across the LAD. 4. The left circumflex artery is medium-sized vessel. It gives rise to two obtuse marginal branches. It has no significant atherosclerotic plaquing or stenosis. Impression and plan: 1. Patient's symptoms likely related to ischemia from coronary artery disease as her coronary flow is intact and no significant atherosclerotic plaquing or stenosis was noted the apart from mild disease to the ostial diagonal branch. 2. Patient has normal diastolic left ventricular pressure. 3. Patient's symptoms could be related to other reasons like, microvascular diseases uremic pericarditis or uncontrolled hypertension from chronic renal failure. 4. I would recommend aggressive medical therapy with a blood pressure control as well as diabetes control, patient would need to have dialysis done after the coronary angiogram to reduced the chance of volume overload. Condition Good [facility] Clinical Frailty Scale [facility] Clinical Frailty Scale: Moderately Frail Stress Test Stress Test Performed: No Dominance Dominance: Right Disposition DEYANIRA VANESSA MD May 14, 2024 09:40
[2024-05-14] MEDS: INSULIN LANTUS (GLARGINE) 1 /0.01ml (100units/ml) SC SCH (10:13)
--- NOTE | 2024-05-14 11:01 | DVHDS2 ---
Discharge Summary Date of Admission May 12, 2024 at 21:21 Date of Discharge: May 14, 2024 Admitting Diagnosis Uncontrolled diabetes mellitus Labs/Diagnostic Data: Laboratory Results Test 05/14/24 10:19 05/14/24 05:23 05/13/24 17:35 05/13/24 04:20 POC Glucose 136 mg/dl (70-106) White Blood Count 9.2 10^3/uL (4.4-10.8) Red Blood Count 3.94 10^6/uL (4.0-5.20) Hemoglobin 12.5 g/dL (12.2-16.2) Hematocrit 36.7 % (36.0-46.0) Mean Corpuscular Volume 93.0 fL (80.0-100.0) Mean Corpuscular Hemoglobin 31.7 pg (28.0-32.0) Mean Corpuscular Hemoglobin Concent 34.1 g/dL (32.0-36.0) Red Cell Distribution Width 14.8 % (11.8-14.3) Platelet Count 163 10^3/uL (140-450) Mean Platelet Volume 10.2 fL (6.9-10.8) Neutrophils (%) (Auto) 70.4 % (37.0-80.0) Lymphocytes (%) (Auto) 17.6 % (10.0-50.0) Monocytes (%) (Auto) 7.2 % (0.0-12.0) Eosinophils (%) (Auto) 4.3 % (0.0-7.0) Basophils (%) (Auto) 0.5 % (0.0-2.0) Neutrophils # (Auto) 6.5 10 ^3/uL (1.6-8.6) Lymphocytes # (Auto) 1.6 10 ^3/uL (0.4-5.4) Monocytes # (Auto) 0.7 10 ^3/uL (0-1.3) Eosinophils # (Auto) 0.4 10 ^3/uL (0-0.8) Basophils # (Auto) 0 10 ^3/uL (0-0.2) Nucleated Red Blood Cells 0.2 % Prothrombin Time 10.1 sec (9.3-11.8) Prothrombin Time INR 0.95 (0.9-1.15) Activated Partial Thromboplast Time 23.1 SEC (24.5-34.5) Sodium Level 132 mmol/L (136-145) Potassium Level 3.5 mmol/L (3.5-5.1) Chloride Level 95 mmol/L (98-107) Carbon Dioxide Level 26 mmol/L (20-31) Anion Gap 11 (5-15) Blood Urea Nitrogen 35 mg/dL (9-23) Creatinine 10.00 mg/dL (0.550-1.02) Glomerular Filtration Rate Calc 5 mL/min (>90) BUN/Creatinine Ratio 3.5 (10.0-20.0) Serum Glucose 243 mg/dL (74-106) Calcium Level 8.4 mg/dL (8.7-10.4) Erythrocyte Sedimentation Rate 16 mm/hr (0-20) C-Reactive Protein High Sensitivity 0.50 mg/dL (<1.0) Hemoglobin A1c 12.6 % A1C (<5.7) Phosphorus Level 4.1 mg/dL (2.4-5.1) Magnesium Level 2.6 mg/dL (1.6-2.6) Total Bilirubin < 0.2 mg/dL (0.2-1.0) Aspartate Amino Transferase (AST) 16 U/L (13-40) Alanine Aminotransferase (ALT) 32 U/L (7-40) Alkaline Phosphatase 97 U/L (46-116) Total Protein 5.6 g/dL (5.7-8.2) Albumin 3.0 g/dL (3.2-4.8) Triglycerides Level 151 mg/dL (< 150) Cholesterol Level 124 mg/dL (< 200) LDL Cholesterol 62 mg/dL (< 100) HDL Cholesterol 30 mg/dL (40-59) Thyroid Stimulating Hormone (TSH) 1.82 uIU/mL (0.55-4.78) Test 05/12/24 19:57 05/12/24 19:21 05/12/24 17:30 05/12/24 16:30 Lactic Acid Level 1.6 mmol/L (0.4-2.0) Troponin I High Sensitivity 158 ng/L (</=34) Beta-Hydroxybutyric Acid 0.278 mmol/L (< 0.4) Beta HCG, Quantitative 1.9 mIU/mL (1.5-4.2) B-Type Natriuretic Peptide 2812.37 pg/mL (0-100) Other Laboratory Tests 05/14/24 05:23 Brief Hx & Hospital Course: History of Present Illness 39-year-old female presents for evaluation of generalized weakness. The patient endorses a three day history of worsening generalized weakness with fatigue. Patient reports practically becoming bed ridden for the past one day due to the increased fatigue. Her blood sugars have also remain elevated greater than 400. She is dialysis dependent and has peritoneal dialysis daily at home. Also reports substernal chest pressure. Denies shortness or breath. No other acute complaints reported. Course of hospitalization: Cardiology consultation was obtained. Patient underwent left heart catheterization today for elevated troponins. Patient was negative for CAD and has been cleared by Cardiology. Patient also had CT scan of the chest yesterday to rule out any pulmonary or cardiac contusion given the patient's chest pain after having a mechanical fall. Blood sugars were improved after initiation of insulin drip, with transitioned to regular insulin sliding scale. Nephrology consultation was obtained, with the patient being continued on peritoneal dialysis. Discussion was made with the patient in the medical laboratory technologist recovery area about findings. She was agreeable to be discharged home and follow up with her [place] PCP at earliest appointment available. She will be continued all previous home medications with no new prescriptions. She is agreeable with discharge plan. All questions answered. Physical exam General: Alert and Oriented x3. No acute distress. Well-nourished. Eyes: EOMI. Anicteric. HENT: Moist mucous membranes. Lungs: Clear to auscultation bilaterally. No accessory muscle use. Cardiovascular: Regular rate and rhythm. No murmur. No JVD. PD catheter Abdomen: Soft, non-tender and non-distended. No palpable masses. Extremities: No edema. Non-tender. Skin: No rashes or lesions. Warm. Neurologic: No focal neurological deficits. CN II-XII grossly intact, but not individually tested. Psychiatric: Cooperative. Appropriate mood and affect. Total time spent with patient discussing and formulating plan of care: 35 minutes. This medical document was created using an electronic medical record system with [employer] system. Although this document has been carefully reviewed, there may still be some phonetic and typographical errors. These areas are purely typographical due to imperfections of the software programs, and do not reflect any compromise in the patient's medical care. Consults/Reason for consult Nephrology: ESRD with peritoneal dialysis Cardiology: NSTEMI Operations or Procedures 05/14/2024: Left heart catheterization Condition at Discharge: Good Final Diagnosis/Problems List NSTEMI type 2, uncontrolled diabetes mellitus Secondary Diagnosis: -NSTEMI, type 2 secondary to uncontrolled diabetes, and chest trauma -severe hyperglycemia -chest trauma -end-stage renal disease with peritoneal dialysis -diabetes mellitus, type one -obesity -chronic pain syndrome Discharge Disposition: Home Discharge Instruct/Medications Diet: Consistent carbohydrate, Cardiac 2g Na,low cholest Activity: No Restrictions, As Tolerated Follow Up/Referral: Follow up with PCP at [facility] at next available appointment Medications: Continue all previous home medications 36 Discharge Statement: "Patient was advised to return to the ER or call 911 if any headaches, dizziness, shortness of breath, chest pain, abdominal pain, bleeding, fevers, or worsening of medical condition. Patient was counseled about treatment plan, medications, possible side effects, patientverbalized understanding. All questions were answered to the best of my ability. This discharge took greater then 30 minutes in planning, reviewing documentation, counseling the patient, and discussing with other team members." ASSESSMENT ASSESSMENT Assessment NSTEMI type 2, uncontrolled diabetes mellitus Date of Service: May 14, 2024 Billing Provider: GARRETT GELLER NP Common Visit Codes: 55819-DUZ/OBS DISCH DAY >30min GARRETT GELLER NP May 14, 2024 11:00
--- NOTE | 2024-05-14 13:52 | DVHPN2 ---
Progress Note Date Seen: May 14, 2024 Resident Creating Document: TINY PATIÑO RESIDENT Medical Necessity Reason Pt with a Central, PICC or Fol: No Subjective Review of Systems History of Present Illness Patient is 39 year old female with past medical history hypertension, hyperlipidemia, end-stage renal disease on peritoneal dialysis, type II diabetes mellitus, osteoporosis, and obesity who came to the hospital with a chief complaint of generalized weakness, loss of appetite and mild shortness of breath. As per patient her diabetes not under control, the reason for ended up ESRD requiring dialysis was uncontrolled hypertension and diabetes. Patient usually follow at [place] with special education professor over there. At the time of evaluation patient continued complaining of generalized weakness, shortness of breath, loss of appetite. No any other complaints at that point. Patient was found to have a high level of glucose around 700 mg/dL, by hospitalist team patient was given insulin. Nephrology consultation was done for management of end-stage renal disease. No other complaints at this point. Past Medical History hypertension, hyperlipidemia, end-stage renal disease on peritoneal dialysis, type II diabetes mellitus, osteoporosis, and obesity Past Surgical History Denies surgery. Social History Lives with family Denies use of alcohol, smoking or any other illicit drug use. Patient seen and examined at bedside. She underwent coronary angiogram, no intervention done. No new complaints. Objective vital signs Vital Sign Date Time Temp Pulse Resp B/P (MAP) Pulse Ox O2 Delivery O2 Flow Rate FiO2 05/14/24 11:59 80 14 135/79 (97) 94 05/14/24 07:30 Nasal Cannula* 2 28 05/13/24 19:49 98.4 98.4 medications Current Medications Medications Dose Ordered Sig/Ann Route Start Time Stop Time Status Last Admin Dose Admin Pantoprazole Sodium 40 mg DAILY@0600 PO 05/13/24 06:00 05/14/24 06:45 40 MG Amlodipine Besylate 10 mg DAILY PO 05/13/24 10:00 05/14/24 10:14 10 MG Calcium Acetate 667 mg TIDWMEALS PO 05/13/24 08:00 05/14/24 11:22 667 MG Hydralazine HCl 10 mg Q6HP PRN IV 05/12/24 21:30 Temazepam 15 mg QHSP PRN PO 05/12/24 21:30 Ondansetron HCl 4 mg Q4HP PRN IV 05/12/24 21:30 05/14/24 07:58 4 MG Acetaminophen 650 mg Q6HP PRN PO 05/12/24 21:30 Nitroglycerin 0.4 mg Q5MINP PRN SL 05/12/24 21:30 Morphine Sulfate 2 mg Q30M PRN IV 05/12/24 21:30 05/13/24 06:29 2 MG Insulin Glargine 15 units DAILY SC 05/14/24 10:00 05/14/24 10:13 15 UNITS Diagnostic Test (Pha) 1 strip ACHS 05/13/24 17:00 05/14/24 10:23 1 STRIP Insulin Human Regular HS SC 05/13/24 22:00 05/13/24 22:27 2 UNITS Insulin Human Regular AC SC 05/13/24 17:00 05/14/24 07:26 6 UNITS Dextrose 50 ml UD PRN IV 05/13/24 12:15 Atorvastatin Calcium 40 mg HS PO 05/13/24 22:00 05/13/24 22:08 40 MG Oxycodone/ Acetaminophen 1 tab Q6HP PRN PO 05/13/24 17:00 05/14/24 00:35 1 TAB Examination General Appearance: Cooperative. Well developed. Well nourished. NAD Head Exam: Normal inspection Neck Exam: Normal inspection. Non-tender. Normal alignment Pulmonary/Respiratory: Chest non-tender. Clear bilateral breath sounds Cardiovascular/Chest: Regular rate and rhythm. No murmurs. No JVD. Peripheral Pulses: 2+ Radial (R). 2+ Radial (L). 2+ Pedal (R). 2+ Pedal (L) Abdominal Exam: Normal bowel sounds. Soft. Nontender. No hepatospenomegaly. No masses, presence of peritoneal dialysis catheter. Ankle Exam: Negative ankle edema Lower extremities: Negative lower extremity edema Neuro/Mental Status: A&O x4. Coherent Thoughts/Psych: Normal thought pattern. Appropriate mood and affect. Good judgement and insight Appearance: In no acute distress Skin Exam: Normal inspection. Normal color. Warm. Dry laboratory and microbiology Laboratory Tests 05/14/24 05:23 Test 05/14/24 05:23 Range/Units Serum Glucose 243 H 74-106 mg/dL Problem List/Assessment/Plan Problem List/Assessment/Plan ESRD on peritoneal dialysis NSTEMI type 2 Hypertensive urgency Uncontrolled Diabetes mellitus type 2 with severe hyperglycemia Hypokalemia Obesity Plan/recommendation Dr. Melgar -Continue peritoneal dialysis daily. Follow-up with [facility] in outpatient setting and Nephrology four continue peritoneal dialysis. -Strict Blood pressure control: Target blood pressure 140/90 mm Hg. Can resume home medication as appropriate. -Strict blood glucose control: Per patient she is on insulin 70/30. Last HGB A1c 12.6 on 05/13/2024 -Renal diet -Maintain strict I&O -Rest of the management per hospitalist. -Transthoracic echocardiogram reveals EF 50% -Per cardiology plan for left heart catheterization: No coronary intervention done. Patient has been discharged as per hospitalist team. Plan discussed with: Patient, Other (RN) TINY PATIÑO RESIDENT May 14, 2024 13:52
[2024-05-14] MEDS ORDERED: MET50T PO (14:07)
[2024-05-14] MEDS ORDERED: HYDR100T10 PO (14:07)
[2024-05-14] MEDS ORDERED: CLON0.1D7 TD (14:07)
[2024-05-14] MEDS ORDERED: LISI20TA56 PO (14:07)
[2024-05-14] MEDS ORDERED: AML5T PO (14:07)
[2024-05-14] MEDS ORDERED: DOCU-94 PO (14:09)
[2024-05-14] MEDS ORDERED: FERR1TAB36 PO (14:09)
[2024-05-14] MEDS ORDERED: FOLI-119 PO (14:09)
[2024-05-14] MEDS ORDERED: AMLO1TAB22 PO (14:12)
[2024-05-14] MEDS ORDERED: OXY5T PO (14:12)
[2024-05-14] MEDS ORDERED: CALC667C PO (14:12)
[2024-05-14] MEDS ORDERED: EPOE20005 IJ (14:16)
[2024-05-14] MEDS ORDERED: PANT40TA2 PO (14:17)
[2024-05-14] MEDS ORDERED: ATOR20TA50 PO (14:18)
[2024-05-14] MEDS ORDERED: CHOL20007 OR (14:19)
[2024-05-14] MEDS ORDERED: CALC500C3 PO (14:20)
[2024-05-14] MEDS ORDERED: SUMA50TA16 PO (14:20)
[2024-05-14] MEDS ORDERED: INS7030I SC ×2 (14:31→14:32)
== END 2024-05-14 15:40 | disposition home or self-care (01) | DRG 637 ==
LOC: ER 15:21 → EDBD 15:21 → TELE 21:21
PROVIDERS: ADMIT Nurse Practitioner; ATTEND Nurse Practitioner Acute Care
PROC: 4A023N7 Measurement of Cardiac Sampling and Pressure, Left Heart, Percutaneous Approach (ICD-10-PCS; principal; 2024-05-14)
PROC: B211YZZ Fluoroscopy of Multiple Coronary Arteries using Other Contrast (ICD-10-PCS; 2024-05-14)
DX: E11.65 Type 2 diabetes mellitus with hyperglycemia (principal); I21.A1 Myocardial infarction type 2; J96.01 Acute respiratory failure with hypoxia; N18.6 End stage renal disease; I12.0 Hypertensive chronic kidney disease with stage 5 chronic kidney disease or end stage renal disease; I25.10 Atherosclerotic heart disease of native coronary artery without angina pectoris; E11.22 Type 2 diabetes mellitus with diabetic chronic kidney disease; D63.1 Anemia in chronic kidney disease; E78.5 Hyperlipidemia, unspecified; I16.0 Hypertensive urgency; E66.9 Obesity, unspecified; G89.4 Chronic pain syndrome; M81.0 Age-related osteoporosis without current pathological fracture; E87.6 Hypokalemia; Z99.2 Dependence on renal dialysis; Z79.4 Long term (current) use of insulin; Z74.01 Bed confinement status
CPT/HCPCS: 36415; 71045; 71250; 80048; 80053; 80061; 82010; 82962; 83036; 83605; 83735; 83880; 84100; 84443; 84484; 84702; 85025; 85610; 85652; 85730; 86141; 93005; 93306; 93458; 99152; G0378; J1815; J2250; J2405; Q9967

== ENCOUNTER 2024-09-25 15:22 | Emergency (ER) | payer OTHER ==
[~2024-09-25] VITALS: Ht 152.4 cm; Wt 66.6 kg
[~2024-09-25 15:22] MED LIST changes: +AML5T PO; +AMLO1TAB22 PO; +ATOR20TA50 PO; +CALC500C3 PO; +CALC667C PO; +CHOL20007 OR; +CLON0.1D7 TD; +DOCU-94 PO; +EPOE20005 IJ; +FERR1TAB36 PO; +FOLI-119 PO; -GLIP-110; +HYDR100T10 PO; +INS7030I SC; -INSLANTI; -INSLISPI; +LISI20TA56 PO; +MET50T PO; +OXY5T PO; +PANT40TA2 PO; -PIOG15TA38; +SUMA50TA16 PO
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
--- NOTE | 2024-09-25 16:30 | DVH ---
CT CT AB PEL WO CON-NO ORAL OR IV INDICATION: Left-sided abdominal pain EXAM DATE: 09/25/2024 03:33 PM COMPARISON: None RADIATION DOSE: CTDIvol: 12.58 mGy, DLP: 621.29 mGy*cm PROCEDURE: Helical CT images were obtained of the abdomen and pelvis without IV contrast Sagittal and coronal reconstructions are provided. ORAL CONTRAST: None. ADDITIONAL IMAGES / REFORMATS: None All C T scans at this medical facility are performed using dose modulation techniques as appropriate to a p erformed exam including the following: Automated exposure control was utilized; adjustment of the MA and/or KV according to patient size; and use of iterative reconstruction technique. FINDINGS: LUNG BASE: Left basilar atelectasis. LIVER: Normal. GALLBLADDER AND BILIARY TREE: No calcified gallstones. Normal caliber wall. No intra- or extrahepatic biliary ductal dilation. PANCREAS: Normal. SPLEEN: Small splenic calcification. BOWEL: Normal. Enlarged appendix secondary to a large appendicolith. ADRENALS: Normal. KIDNEYS AND URETER: Normal. BLADDER: Normal. REPRODUCTIVE ORGANS: Normal. LYMPH NODES:No lymphadenopathy. PERITONEUM: No ascites or free air. No other fluid collection. A peritoneal dialysis catheter is seen . VESSELS: Scattered atherosclerotic calcifications are noted. RETROPERITONEUM: Normal. ABDOMINAL WALL: Normal. BONES: Scattered osseous degenerative changes are noted. T11, L1 compression deformities of the verte bral bodies. IMPRESSION: No acute intraabdominal abnormality. Enlarged appendix secondary to a large appendicolith.
[2024-09-25 18:04] VITALS: BP 183/94; PULSE 77; RESP 16; TEMP 98.9; O2SAT 94
== END 2024-09-25 18:14 | disposition home or self-care (01) ==
LOC: ER 15:26
DX: R10.84 Generalized abdominal pain (principal); M79.18 Myalgia, other site; I12.0 Hypertensive chronic kidney disease with stage 5 chronic kidney disease or end stage renal disease; E11.22 Type 2 diabetes mellitus with diabetic chronic kidney disease; N18.6 End stage renal disease; Z79.899 Other long term (current) drug therapy; Z99.2 Dependence on renal dialysis; Z88.8 Allergy status to other drugs, medicaments and biological substances
CPT/HCPCS: 74176